=== PATIENT | female | born 1985 | race Caucasian/White ===

== ENCOUNTER 2017-12-18 05:54 | Inpatient (IN) | payer OTHER ==
[~2017-12-18] VITALS: Ht 162.6 cm; Wt 82.1 kg
[2017-12-18] MEDS ORDERED: RINGERS SOLUTION,LACTATED 1,000 ML IV ONE (06:41)
[2017-12-18 06:45] VITALS: BP 113/78
[2017-12-18] MEDS ORDERED: METOCLOPRAMIDE HCL 5 MG/ML 2 ML VIAL IVP ONE (06:45)
[2017-12-18] MEDS ORDERED: CITRIC ACID/SODIUM CITRATE 30 ML SOLUTION UDCUP PO ONE (06:45)
[2017-12-18] MEDS ORDERED: PREN1TAB80 PO (06:51)
[2017-12-18 07:07] LABS: BASOPHILS % (AUTO) 0.2 % (0.0-2.0); EOSINOPHILS % (AUTO) 0.5 % (1.0-6.0); HEMOGLOBIN 13.4 g/dL (12.0-16.0); LYMPHOCYTES # (AUTO) 2.3 K/uL (1.0-4.8); LYMPHOCYTES % (AUTO) 27.9 % (22.0-44.0); MEAN CORPUSCULAR HEMOGLOBIN 31.5 pg (26.0-34.0); MEAN CORPUSCULAR HGB CONC 35.4 G/dL (31.0-37.0); MEAN CORPUSCULAR VOLUME 89 fL (80-100); MONOCYTES # (AUTO) 0.4 K/uL (0.1-1.0); NEUTROPHILS # (AUTO) 5.6 K/uL (1.8-7.7); NEUTROPHILS % (AUTO) 66.4 % (40.0-70.0); PLATELET COUNT (AUTO)-OB 213 K/uL (150-450); RED BLOOD CELL COUNT(AUTO) 4.26 MIL/uL (4.00-5.20)
[2017-12-18] MEDS ORDERED: FentaNYL CITRATE-PF 100 MCG/2 ML VIAL ONE (08:56)
[2017-12-18] MEDS ORDERED: ACETAMINOPHEN 1000 MG/ISO-OSM 100 ML IV ONE (08:56)
[2017-12-18] MEDS ORDERED: MORPHINE SULFATE/PF 0.5 MG/ML 10 ML AMP ONE (08:56)
[2017-12-18] MEDS ORDERED: NALBUPHINE HCL 10 MG/ML VIAL IVP PRN ×3 (09:45→10:15)
[2017-12-18] MEDS ORDERED: DEXAMETHASONE SOD PHOS 4 MG/ML VIAL IVP PRN (09:45)
[2017-12-18] MEDS ORDERED: DiphenhydrAMINE HCL 50 MG/ML VIAL IVP PRN ×2 (09:45→10:15)
[2017-12-18] MEDS ORDERED: ONDANSETRON HCL 4 MG/2 ML VIAL IVP PRN ×2 (09:45→10:15)
[2017-12-18] MEDS ORDERED: NALOXONE HCL 0.4 MG/ML VIAL IVP PRN (10:15)
[2017-12-18] MEDS ORDERED: MORPHINE SULFATE 10 MG/ML SYRINGE IVP PRN (10:15)
[2017-12-18] MEDS ORDERED: FentaNYL CITRATE-PF 100 MCG/2 ML VIAL IVP PRN (10:15)
[2017-12-18] MEDS ORDERED: ACETAMINOPHEN/CODEINE 300-30 MG TABLET PO PRN (10:30)
[2017-12-18] MEDS ORDERED: LANOLIN 7 GM OINTMENT TP PRN (10:30)
[2017-12-18] MEDS ORDERED: 0.9% SODIUM CHLORIDE 10 ML VIAL IVP ONE (12:00)
[2017-12-18] MEDS ORDERED: OXYTOCIN 10 UNITS/ML VIAL IM ONE (12:00)
[2017-12-18] MEDS ORDERED: EPHEDrine SULFATE 50 MG/ML VIAL IM ONE (12:00)
[2017-12-18] MEDS: DEXTROSE 5%-0.45% SODIUM CHL 1,000 ML IV SCH ×3 (12:57→21:20)
[2017-12-18] MEDS: ACETAMINOPHEN 1000 MG/ISO-OSM 100 ML IV SCH (18:05)
[2017-12-18] MEDS ORDERED: OXYGEN THERAPY IH SCH ×3 (20:00)
[2017-12-19] MEDS: ACETAMINOPHEN 1000 MG/ISO-OSM 100 ML IV SCH (02:01)
[2017-12-19] MEDS: DEXTROSE 5%-0.45% SODIUM CHL 1,000 ML IV SCH (02:01)
[2017-12-19] MEDS: IBUPROFEN 800 MG TABLET PO SCH ×2 (08:21→14:28)
[2017-12-19] MEDS: MAGNESIUM HYDROXIDE SUSPENSION 30 ML UDCUP PO SCH (08:21)
[2017-12-19] MEDS: ACETAMINOPHEN/CODEINE 300-30 MG TABLET PO PRN (17:28)
[2017-12-20] MEDS: IBUPROFEN 800 MG TABLET PO SCH ×5 (03:47→21:53)
[2017-12-20] MEDS: ACETAMINOPHEN/CODEINE 300-30 MG TABLET PO PRN (15:01)
[2017-12-20] MEDS: MAGNESIUM HYDROXIDE SUSPENSION 30 ML UDCUP PO SCH (20:20)
[2017-12-21] MEDS: IBUPROFEN 800 MG TABLET PO SCH (04:32)
[2017-12-21] MEDS ORDERED: IBUP-2071 PO (09:29)
== END 2017-12-21 12:10 | disposition home or self-care (01) | DRG 766 ==
LOC: 4S 05:54
PROVIDERS: ADMIT Obstetrics & Gynecology; ATTEND Obstetrics & Gynecology
PROC: 10D00Z1 Extraction of Products of Conception, Low, Open Approach (ICD-10-PCS; principal; 2017-12-18)
DX: O34.211 Maternal care for low transverse scar from previous cesarean delivery (principal); Z3A.39 39 weeks gestation of pregnancy; Z37.0 Single live birth
CPT/HCPCS: 86850; 86900; 86901; 87081; J0131; J0690; J2274; J2590; J2765; J3010; J3490; J7120